=== PATIENT | female | born 1990 | race African-American/Black ===

== ENCOUNTER 2019-05-02 15:00 | Emergency (ER) | payer OTHER ==
[2019-05-02 15:25] VITALS: BP 114/64; PULSE 72; TEMP 98; BMI 31.6
[2019-05-02] MEDS ORDERED: ACETAMINOPHEN 325 MG TABLET (FP) PO ONE (15:32)
--- NOTE | 2019-05-02 15:33 | PDOC ---
History of Present Illness - General Chief Complaint: Injury Stated Complaint: INJURY Time Seen by Provider: 05/02/19 15:24 History Source: Patient Exam Limitations: No Limitations - History of Present Illness Initial Comments: Estephanie Toussaint is a 28 yo F w a hx of MS on tecfidera and chronic back pain who [facility] after the ceiling from her bathroom fell down on her while she was in the bathroom. The ceiling from her bathroom frequently leaks and this is the 2nd time the ceiling has fallen down. She is usually only able to walk with a walker and when the ceiling fell on her today no-one else was home to help her get up and she could not get up on her own so she called 911 for help. She is endorsing a significant amount of left elbow and knee pain as well as right lateral back pain. Patient is not able to ambulate at baseline secondary to her MS. She states she has multiple herniated discs in her back and today the sheet rock that fell down on her is causing her pain to be worse. The patient states she does not believe her back pain is any worse than usual but it hurts as it always does. PCP: Kalyan Batres Allergies: NKA, NKDA Social Hx: Denies current smoking, drinking, or other substance usage PSH: Umbilical hernia surgery Past History - Past Medical History Allergies/Adverse Reactions: Allergies Allergy/AdvReac Type Severity Reaction Status Date / Time No Known Allergies Allergy Verified 05/02/19 15:25 Home Medications: Ambulatory Orders Tobramycin/Dexamethasone [Tobradex Eye Drops] 2 drop OD Q4H #1 bottle 03/31/14 Anemia: No Asthma: No Cancer: No Cardiac Disorders: No CVA: No COPD: No CHF: No Dementia: No Diabetes: No GI Disorders: Yes (hernia) Disorders: No HTN: No Hypercholesterolemia: No Liver Disease: No Seizures: No Thyroid Disease: No - Surgical History Abdominal Surgery: Yes (UMBILICAL HERNIA) Appendectomy: No Cardiac Surgery: No Cholecystectomy: No Lung Surgery: No Neurologic Surgery: No Orthopedic Surgery: No - Suicide/Smoking/Psychosocial Hx Smoking Status: Yes Smoking History: Unknown if ever smoked Have you smoked in the past 12 months: No Number of Cigarettes Smoked Daily: 0 Information on smoking cessation initiated: No Hx Alcohol Use: No Drug/Substance Use Hx: No Substance Use Type: Alcohol Hx Substance Use Treatment: No Review of Systems - Review of Systems Able to Perform ROS?: Yes Comments:: CONSTITUTIONAL: Absent: fever, no chills, no fatigue EYES: Absent: visual changes ENT: Absent: ear pain, no sore throat CARDIOVASCULAR: Absent: chest pain, no palpitations RESPIRATORY: Absent: cough, no SOB GI: Absent: abdominal pain, no nausea, no vomiting, no constipation, no diarrhea GENITOURINARY: Absent: dysuria, no frequency, no hematuria MUSKULOSKELETAL: Present: Back pain, arthralgia Absent: no myalgia SKIN: Absent: rash NEURO: Absent: headache *Physical Exam - Vital Signs Last Vital Signs Temp Pulse Resp BP Pulse Ox 98.0 F 72 16 114/64 98 05/02/19 15:21 05/02/19 15:21 05/02/19 15:21 05/02/19 15:21 05/02/19 15:21 - Physical Exam Comments: GENERAL: Patient is awake, alert and in moderate. Speech is clear and appropriate. HEAD: Atraumatic and nontender. HEENT: Pupils are equal round and reactive to light, extraocular movements are intact. The tympanic membranes are clear, no hemotympanum. No facial deformity. No facial bone tenderness or step-off. No nasal septal hematoma. The oropharynx is clear. NECK: The trachea is midline, there is no stridor. There is no midline cervical spine tenderness, full range of motion of neck. CHEST: Non-tender, no ecchymosis or abrasions. Equal chest wall expansion bilaterally. No flail segments. Lungs are clear to auscultation bilaterally. CARDIOVASCULAR: S1-S2, regular rate and rhythm. No murmurs or rubs. ABDOMEN: Soft, nontender, nondistended. Bowel sounds are normoactive. There is no abdominal or flank ecchymosis. BACK/PELVIS: There is midline lumbosacral spine tenderness. Pelvis is stable and nontender. EXTREMITIES: There is left elbow pain and left knee pain. 2+ distal pulses throughout. NEURO: Alert and oriented x3. Cranial nerves II through XII are intact. 5 out of 5 motor strength x4 extremities. SKIN: No abrasions, hematomas, lacerations. PSYCH: Affect is sad ED Treatment Course - RADIOLOGY Radiology Studies Ordered: Category Date Time Status ELBOW-LEFT [RAD] Stat Radiology 05/02/19 15:29 Ordered KNEE 2 POS-LEFT [RAD] Stat Radiology 05/02/19 15:30 Ordered Medical Decision Making - Medical Decision Making Estephanie Toussaint is a 28 yo F w a hx of MS on tecfidera and chronic back pain who [facility] after the ceiling from her bathroom fell down on her while she was in the bathroom. The ceiling from her bathroom frequently leaks and this is the 2nd time the ceiling has fallen down. She is usually only able to walk with a walker and when the ceiling fell on her today no-one else was home to help her get up and she could not get up on her own so she called 911 for help. She is endorsing a significant amount of left elbow and knee pain as well as right lateral back pain. Patient is not able to ambulate at baseline secondary to her MS. She states she has multiple herniated discs in her back and today the sheet rock that fell down on her is causing her pain to be worse. The patient states she does not believe her back pain is any worse than usual but it hurts as it always does. Vital Signs Temp Pulse Resp BP Pulse Ox 98.0 F 72 16 114/64 98 05/02/19 15:21 05/02/19 15:21 05/02/19 15:21 05/02/19 15:21 05/02/19 15:21 DDx IBNLT: lumbar fx, elbow fx, knee fx Plan: HCG, analgesia, XR, CT, re-assess. HCG: Negative XR: No acute Fx Disposition: Home if CT shows no acute fx Patient will be signed out to night resident Dr. Phan to follow up final CT and disposition. *DC/Admit/Observation/Transfer Diagnosis at time of Disposition: Fall Qualifiers: Encounter type: initial encounter Qualified Code(s): W19.XXXA - Unspecified fall, initial encounter - Discharge Dispostion Disposition: HOME Condition at time of disposition: Stable Decision to Admit order: No - Referrals Referrals: Kalyan Batres MD [Primary Care Provider] - - Patient Instructions Printed Discharge Instructions: How to Prevent Falls Additional Instructions: Please make sure to follow up with your primary care doctor in the next 3 to 5 days to make sure you are feeling well and getting better. Come back to the ER immediately if your pain worsens, you can't control your bowel or bladder, or have any other new or worsening concerns. Thank you for coming to the [facility]. We hope you feel better soon! Print Language: JAPANESE - Post Discharge Activity
[2019-05-02] MEDS ORDERED: ACETAMINOPHEN 325 MG TABLET (FP) ONE (15:34)
--- NOTE | 2019-05-02 16:22 | PDOC ---
Documentation entered by Maria Teresa Wilkins SCRIBE, acting as scribe for Jackelin Driscoll MD. Jackelin Driscoll MD: This documentation has been prepared by the Claudette roberts Nirvannie, SCRIBE, under my direction and personally reviewed by me in its entirety. I confirm that the documentation accurately reflects all work, treatment, procedures, and medical decision making performed by me. Attending Attestation - Resident Resident Name: Juliocesar Davis - ED Attending Attestation I have performed the following: I have examined & evaluated the patient, The case was reviewed & discussed with the resident, I agree w/resident's findings & plan - HPI HPI: 05/02/19 16:02 The patient is a 28 year old female, with a significant past medical history of MS (unable to ambulate) and herniated discs, who presents to the emergency department with, left elbow, left knee, and right sided back pain. As per patient, she was in the bathroom at which time a ceiling tile fell on her mainly hitting her back, prompting her arrival to the ED. She denies recent chest pain or shortness of breath. She denies recent fevers, chills, headache or dizziness. She denies recent nausea, vomiting, diarrhea or constipation. She denies recent dysuria, frequency, urgency or hematuria. Allergies: NKDA Primary Care Physician: Dr. Batres - Physicial Exam PE: 05/02/19 16:02 GENERAL: Awake, alert, and fully oriented, in no acute distress HEAD: No signs of trauma EYES: PERRLA, EOMI, sclera anicteric, conjunctiva clear ENT: Auricles normal inspection, hearing grossly normal, nares patent, oropharynx clear without exudates. Moist mucosa NECK: Normal ROM, supple, no lymphadenopathy, JVD, or masses LUNGS: Breath sounds equal, clear to auscultation bilaterally. No wheezes, and no crackles HEART: Regular rate and rhythm, normal S1 and S2, no murmurs, rubs or gallops ABDOMEN: Soft, nontender, normoactive bowel sounds. No guarding, no rebound. No masses EXTREMITIES: Normal range of motion, no edema. No clubbing or cyanosis. No cords, erythema, or tenderness NEUROLOGICAL: Cranial nerves II through XII grossly intact. Normal speech, normal gait. Motor and sensation intact SKIN: Warm, Dry, normal turgor, no rashes or lesions noted
[2019-05-02] MEDS ORDERED: morphine CARPU-JECT 4 MG/1 ML DISP.SYRIN IVPUSH ONE (16:57)
[2019-05-02] MEDS ORDERED: morphine SULFATE 4 MG/ML VIAL ONE (17:07)
--- NOTE | 2019-05-02 19:10 | PDOC ---
*Physical Exam - Vital Signs Last Vital Signs Temp Pulse Resp BP Pulse Ox 98.0 F 72 16 114/64 98 05/02/19 15:21 05/02/19 15:21 05/02/19 15:21 05/02/19 15:21 05/02/19 15:21 ED Treatment Course - ADDITIONAL ORDERS Additional order review: Laboratory Results 05/02/19 16:22 Urine HCG, Qual Negative - Medications Given in the ED: ED Medications Discontinued Medications Generic Name Dose Route Start Last Admin Trade Name Freq PRN Reason Stop Dose Admin Acetaminophen 975 mg 05/02/19 15:32 05/02/19 15:39 Tylenol - PO 05/02/19 15:33 975 mg ONCE ONE Administration Morphine Sulfate 4 mg 05/02/19 16:57 05/02/19 17:24 Morphine Injection - IVPUSH 05/02/19 16:58 4 mg ONCE ONE Administration Medical Decision Making - Medical Decision Making Pt signed out to me by Dr. Davis, see his note. 28 year old female with PMH chronic back pain, MS [facility] to ED for low back pain, left elbow, left knee pain after her home ceiling fell on top of her. She is ambulatory with a walker at baseline. Initial Vital Signs Temp Pulse Resp BP Pulse Ox 98.0 F 72 16 114/64 98 05/02/19 15:21 05/02/19 15:21 05/02/19 15:21 05/02/19 15:21 05/02/19 15:21 Afebrile. No tachycardia. No tachypnea. No hypotension. No hypoxia on room air. ED Medications Medications given Generic Name Dose Route Start Last Admin Trade Name Freq PRN Reason Stop Dose Admin Acetaminophen 975 mg 05/02/19 15:32 05/02/19 15:39 Tylenol - PO 05/02/19 15:33 975 mg ONCE ONE Administration Morphine Sulfate 4 mg 05/02/19 16:57 05/02/19 17:24 Morphine Injection - IVPUSH 05/02/19 16:58 4 mg ONCE ONE Administration Knee XR and elbow XR showed no acute fracture/dislocation by our read. -Pending official report Pending CT lumbar spine report. 05/02/19 19:18 CT report: REPORT: The bone alignment appears intact. No acute fracture or subluxation is seen. Vertebral heights and disc spaces appear maintained. L5-S1 disc bulging seen. One or more of the following dose reduction techniques were used: automated exposure control, adjustment of the mA and/or kV according to patient size, use of iterative reconstructive technique. Pt informed of results and given copy of report. Pt discharged. *DC/Admit/Observation/Transfer Diagnosis at time of Disposition: Back pain, Herniated nucleus pulposus, L5-S1 Fall Qualifiers: Encounter type: initial encounter Qualified Code(s): W19.XXXA - Unspecified fall, initial encounter - Discharge Dispostion Disposition: HOME Condition at time of disposition: Stable Decision to Admit order: No - Referrals Referrals: Kalyan Batres MD [Primary Care Provider] - - Patient Instructions Printed Discharge Instructions: How to Prevent Falls, DI for Herniated Disc Additional Instructions: You have a disc herniation. Please make sure to follow up with your primary care doctor in the next 3 to 5 days to make sure you are feeling well and getting better. Take ibuprofen over the counter for pain. Take as advised on label. Rest for the next 3 days, do not do any heavy lifting or strenuous exercise. Apply a heating pad to the area, 20 minutes on and 20 minutes off. Come back to the ER immediately if your pain worsens, you can't control your bowel or bladder, or have any other new or worsening concerns. Thank you for coming to the [facility] ER. We hope you feel better soon! Print Language: ALBANIAN - Post Discharge Activity Forms/Work/School Notes: Back to Work
== END 2019-05-02 19:33 | disposition home or self-care (01) ==
LOC: JER 15:00
PROC: 3E033NZ Introduction of Analgesics, Hypnotics, Sedatives into Peripheral Vein, Percutaneous Approach (ICD-10-PCS; principal; 2019-05-02)
DX: M25.522 Pain in left elbow (principal); M25.562 Pain in left knee; M51.27 Other intervertebral disc displacement, lumbosacral region; W20.1XXA Struck by object due to collapse of building, initial encounter; Y93.89 Activity, other specified; Y92.031 Bathroom in apartment as the place of occurrence of the external cause; Y99.8 Other external cause status; G35 Multiple sclerosis; R26.89 Other abnormalities of gait and mobility; Z99.89 Dependence on other enabling machines and devices
CPT/HCPCS: 72131-TC; 73070-TC-LT-FY; 73560-TC-LT-FY; 84703; 96374; 99283-25

== ENCOUNTER 2019-07-23 06:23 | Emergency (ER) | payer OTHER ==
[2019-07-23 07:17] VITALS: BMI 28.1
[2019-07-23] MEDS ORDERED: ACETAMINOPHEN 1000 MG/100 ML VIAL (NON FORMULARY) IVPB ONE (07:39)
[2019-07-23] MEDS ORDERED: ACETAMINOPHEN INJECTION 100 ML IVPB ONE (07:53)
[2019-07-23] MEDS ORDERED: FAMOTIDINE 20 MG/50 ML IVPB 20 MG/50 ML MG IVPB ONE ×2 (08:03→08:04)
[2019-07-23 08:05] LABS: BASO % 0.8 % (0-2.0); EOS % 1.2 % (0-4.5); HEMATOCRIT 37.9 % (32.4-45.2); HEMOGLOBIN 12.7 GM/dL (10.7-15.3); LYMPH % 24.8 % (8-40); MCH 28.7 pg (25.7-33.7); MCHC 33.5 g/dl (32.0-36.0); MEAN CELL VOLUME 85.7 fl (80-96); MEAN PLT VOLUME 7.5 fl (7.5-11.1); MONO % 9.5 % (3.8-10.2); NEUT % 63.7 % (42.8-82.8); PLATELET COUNT 380 K/MM3 (134-434); RBC 4.42 M/mm3 (3.60-5.2); RDW 16.3 % (11.6-15.6); WHITE BLOOD COUNT 4.6 K/mm3 (4.0-10.0)
--- NOTE | 2019-07-23 08:10 | PDOC ---
History of Present Illness - General Chief Complaint: Pain Stated Complaint: ABD PAIN Time Seen by Provider: 07/23/19 07:30 History Source: Patient Exam Limitations: Clinical Condition - History of Present Illness Initial Comments: 07/23/19 08:05 Patient with past medical history of multiple sclerosis on meds presented with complaint of sudden onset of epigastric and lower chest pain upon wake 3 hours ago when one episode of vomiting. Patient reported severe epigastric pain radiating to suprapubic region and left lower quadrant abdomen. Denies diarrhea , constipation, fever, chills, shortness of breath, palpitations, dizziness, sweats or weakness. Report increased pain when she presses on the lower chest or when she moves which get better when she is at rest. Patient did not take anything for symptoms Is this a multiple visit Asthma Patient?: No Timing/Duration: 4-6 hours Past History - Past Medical History Allergies/Adverse Reactions: Allergies Allergy/AdvReac Type Severity Reaction Status Date / Time No Known Allergies Allergy Verified 05/02/19 15:25 Home Medications: Ambulatory Orders Tobramycin/Dexamethasone [Tobradex Eye Drops] 2 drop OD Q4H #1 bottle 03/31/14 Famotidine [Pepcid -] 20 mg PO BID #10 tablet 07/23/19 Mag Hydrox/Aluminum Hyd/Simeth [Maalox Advanced Suspension] 30 ml PO Q8H PRN # 200 ml 07/23/19 Anemia: No Asthma: No Cancer: No Cardiac Disorders: No CVA: No COPD: No CHF: No Dementia: No Diabetes: No GI Disorders: Yes (hernia) Disorders: No HTN: No Hypercholesterolemia: No Liver Disease: No Seizures: No Thyroid Disease: No - Surgical History Abdominal Surgery: Yes (UMBILICAL HERNIA) Appendectomy: No Cardiac Surgery: No Cholecystectomy: No Lung Surgery: No Neurologic Surgery: No Orthopedic Surgery: No - Psycho Social/Smoking Cessation Hx Smoking Status: Yes Smoking History: Current every day smoker Have you smoked in the past 12 months: No Number of Cigarettes Smoked Daily: 7 Information on smoking cessation initiated: Yes Hx Alcohol Use: No Drug/Substance Use Hx: No Substance Use Type: Alcohol Hx Substance Use Treatment: No Review of Systems - Review of Systems Able to Perform ROS?: Yes Is the patient limited [place] Leonean proficient: No Constitutional: No: Chills, Fever, Malaise, Weakness HEENTM: No: Symptoms Reported, See HPI, Eye Pain, Blurred Vision, Tearing, Recent change in vision, Double Vision, Cataracts, Ear Pain, Ocular Prothesis, Ear Discharge, Nose Pain, Nose Congestion, Tinnitus, Nose Bleeding, Hearing Loss , Throat Pain, Throat Swelling, Mouth Pain, Dental Problems, Difficulty Swallowing, Mouth Swelling, Other Respiratory: No: Symptoms reported, See HPI, Cough, Orthopnea, Shortness of Breath, SOB with Exertion, SOB at Rest, Stridor, Wheezing, Productive cough, Hemoptysis, Other Cardiac (ROS): Yes: Symptoms Reported, See HPI, Chest Pain (lower mid-sternum). No: Edema, Irregular Heart Rate, Lightheadedness, Palpitations, Syncope, Chest Tightness, Other ABD/GI: Yes: Symptoms Reported, See HPI, Vomiting (resolved). No: Abd. Pain w/ defecation, Blood Streaked Bowels, Constipated, Diarrhea, Difficulty Swallowing , Nausea, Rectal Bleeding, Indigestion, Abdominal cramping Musculoskeletal: No: Symptoms Reported Integumentary: No: Symptoms Reported Neurological: No: Symptoms reported, Headache, Numbness, Paresthesia, Seizure, Weakness, Unsteady Gait, Ataxia, Dizziness All Other Systems: Reviewed and Negative *Physical Exam - Vital Signs Last Vital Signs Temp Pulse Resp BP Pulse Ox 97.5 F L 63 15 109/68 99 07/23/19 06:40 07/23/19 06:40 07/23/19 06:40 07/23/19 06:40 07/23/19 06:40 - Physical Exam Comments: 07/23/19 08:12 GENERAL: Well developed, well nourished. Awake and alert. No acute distress. HEENT: Normocephalic, atraumatic. PERRLA, EOMI. No conjunctival pallor. Sclera are non-icteric. Moist mucous membranes. Oropharynx is clear. NECK: Supple. Full ROM. CARDIOVASCULAR: Regular rate and rhythm. No murmurs, rubs, or gallops. Distal pulses are 2+ and symmetric. Mild lower mid sternum tenderness over xiphoid process PULMONARY: No evidence of respiratory distress. Lungs clear to auscultation bilaterally. No wheezing, rales or rhonchi. ABDOMINAL: Soft. Moderate epigastric discomfort. Non-distended. No rebound or guarding. No organomegaly. Normoactive bowel sounds. negative tristan's sign MUSCULOSKELETAL Normal range of motion at all joints. SKIN: Warm and dry. Normal capillary refill. No rashes. No cyanosis. NEUROLOGICAL: Alert, awake, appropriate. Gait is normal without ataxia. PSYCHIATRIC: Cooperative. Good eye contact. Appropriate mood General Appearance: Yes: Nourished, Appropriately Dressed. No: Apparent Distress ED Treatment Course - LABORATORY CBC & Chemistry Diagram: 07/23/19 07:40 07/23/19 07:40 Medical Decision Making - Medical Decision Making 07/23/19 08:07 Patient with past medical history of multiple sclerosis on meds presented with complaint of sudden onset of epigastric and lower chest pain upon wake 3 hours ago when one episode of vomiting. Patient reported severe epigastric pain radiating to suprapubic region and left lower quadrant abdomen. Denies diarrhea , constipation, fever, chills, shortness of breath, palpitations, dizziness, sweats or weakness. Report increased pain when she presses on the lower chest or when she moves which get better when she is at rest. Patient did not take anything for symptoms Exam significant for moderate tenderness to epigastric region without guarding or rebound with mild tenderness to lower mid sternum over the xiphoid. Normal bowel sounds. Negative tristan's sign. Normal cardio exam and lungs clear to auscultation bilateral. Patient symptoms likely costochondritis with with cholecystitis versus musculoskeletal pain versus less likely cardiogenic pain. CBC, CMP and lipase lab ordered. Cardiac profile lab ordered to rule out acute cardiac pathology. EKG ordered. Tylenol 1 g IV ordered for pain and Pepcid 20 mg IV ordered for epigastric pain. Treat based on lab and imaging results 07/23/19 08:40 EKG shows normal sinus rhythm. Cardiac profile negative. CBC and chemistry lab within normal limits. Patient reported improved pain with Tylenol and Pepcid. Abdominal ultrasound ordered to evaluate abdominal pain to rule out cholecystitis or gallstone 07/23/19 12:09 CBC, CMP and cardiac profile unremarkable. ultrasound read by radiologist shows multiple non-obstructing gallstones with thickening of gallbladder w/o pericholecystic fluid which is suggestive but not diagnostic of possible cholecystitis. Given normal labs and negative tristan's sign on exam, and pt report complete improvement of pain, Patient stable for discharge on pepcid and maalox with general surgery f/u and strict f/u instructions Discharge - Discharge Information Problems reviewed: Yes Clinical Impression/Diagnosis: Abdominal pain Qualifiers: Abdominal location: epigastric Qualified Code(s): R10.13 - Epigastric pain Gallstone Qualifiers: Cholecystitis presence: without cholecystitis Biliary obstruction: without biliary obstruction Qualified Code(s): K80.20 - Calculus of gallbladder without cholecystitis without obstruction Condition: Stable Disposition: HOME - Admission No - Additional Discharge Information Prescriptions: Famotidine [Pepcid -] 20 mg PO BID #10 tablet Mag Hydrox/Aluminum Hyd/Simeth [Maalox Advanced Suspension] 30 ml PO Q8H PRN # 200 ml PRN Reason: abdominal discomfort - Follow up/Referral Referrals: Walter Whitten MD [Staff Physician] - - Patient Discharge Instructions Patient Printed Discharge Instructions: DI for Acute Abdomen Additional Instructions: Your labs was normal. Your abdominal ultrasound shows multiple gallstones with mild thickening of the gallbladder which needs to be followed-up by genreal surgery. Take prescribed medication as prescribed for abdominal discomfort. Increase fluid intake. Follow-up referred general surgery doctor immediately as discussed. Come right back to ER or nearest ED if worsening abdominal pains, nausea, vomiting, fever - Post Discharge Activity
[2019-07-23 08:17] LABS: INR 1.02 (0.83-1.09)
[2019-07-23 08:19] LABS: ACTIVATED PTT 32.1 SECONDS (25.2-36.5)
[2019-07-23 08:31] LABS: ALBUMIN 3.8 g/dl (3.4-5.0); BILIRUBIN,TOTAL 0.6 mg/dL (0.2-1); BLOOD UREA NITROGEN 17.9 mg/dL (7-18); CALCIUM 9.3 mg/dL (8.5-10.1); CREATININE 0.8 mg/dL (0.55-1.3); POTASSIUM 4.1 mmol/L (3.5-5.1); TOT PROT 7.3 g/dl (6.4-8.2)
[2019-07-23 08:33] LABS: LIPASE 69 U/L (73-393)
[2019-07-23 12:12] VITALS: BP 110/62; PULSE 67; TEMP 98.6
--- NOTE | 2019-07-26 11:49 | EKG ---
Test Reason : Blood Pressure : / mmHG Vent. Rate : 067 BPM Atrial Rate : 067 BPM P-R Int : 128 ms QRS Dur : 086 ms QT Int : 408 ms P-R-T Axes : 065 069 053 degrees QTc Int : 431 ms NORMAL SINUS RHYTHM WITH SINUS ARRHYTHMIA NORMAL ECG WHEN COMPARED WITH ECG OF 16-JAN-2013 19:55, NO SIGNIFICANT CHANGE WAS FOUND Confirmed by HUONG THOMPSON MD ([id number]) on 07/26/2019 11:49:23 AM Referred By: Confirmed By:HUONG THOMPSON MD
== END 2019-07-23 12:00 | disposition home or self-care (01) ==
LOC: JER 06:23
PROC: 3E033GC Introduction of Other Therapeutic Substance into Peripheral Vein, Percutaneous Approach (ICD-10-PCS; principal; 2019-07-23)
PROC: 3E033NZ Introduction of Analgesics, Hypnotics, Sedatives into Peripheral Vein, Percutaneous Approach (ICD-10-PCS; 2019-07-23)
DX: K80.20 Calculus of gallbladder without cholecystitis without obstruction (principal); F17.210 Nicotine dependence, cigarettes, uncomplicated
CPT/HCPCS: 36415; 76705-TC; 80053; 82550; 82553; 83690; 84484; 85025; 85610; 85730; 93005; 93010; 99283-25; J0131

== ENCOUNTER 2019-10-08 08:51 | Day surgery (SDC) | payer OTHER ==
[2019-10-04 15:52] VITALS: BMI 28.1
[2019-10-08] MEDS ORDERED: ONDANSETRON 4 MG/2 ML VIAL ONE (09:42)
[2019-10-08] MEDS ORDERED: DEXAMETHASONE SOD PHOSPHATE 4 MG/1 ML VIAL ONE (09:42)
[2019-10-08] MEDS ORDERED: ceFAZolin SODIUM 1 GM VIAL ONE (09:42)
[2019-10-08] MEDS ORDERED: KETOROLAC TROMETHAMINE 30 MG/1 ML VIAL ONE (09:42)
[2019-10-08] MEDS ORDERED: PROPOFOL 20 ML ONE (09:42)
[2019-10-08] MEDS ORDERED: MIDAZOLAM HCL 2 MG/2 ML SINGLE DOSE VIAL ONE (09:42)
[2019-10-08] MEDS ORDERED: BUPIVACAINE HCL/PF 2.5 MG/ML - 30 ML VIAL IJ ONE (10:01)
[2019-10-08] MEDS ORDERED: ONDANSETRON 4 MG/2 ML VIAL IVPUSH PRN (11:10)
[2019-10-08] MEDS ORDERED: oxyCODONE HCL 5 MG TABLET PO PRN ×2 (11:10)
[2019-10-08] MEDS ORDERED: LACTATED RINGERS SOLUTION 1,000 ML IV SCH (11:15)
[2019-10-08] MEDS ORDERED: BUPIVACAINE HCL/PF 0.25% (2.5MG/ML) 10 ML VIAL IJ ONE (11:26)
[2019-10-08] MEDS ORDERED: ALBUTEROL SO4 2.5/IPRATROPIUM 0.5 INH SOL 3 ML VIAL.NEB. NEB ONE (12:05)
--- NOTE | 2019-10-08 12:48 | OP ---
DATE OF OPERATION: 10/08/2019 Done at [facility] SURGEON: Monster Hester MD MECHANICAL ENGINEERING OFFICER: FREDDY Roberts PREOPERATIVE DIAGNOSES: 1. Right knee medial and lateral meniscal tear. 2. Right knee cartilage injury. 3. Right knee synovitis. POSTOPERATIVE DIAGNOSIS: 1. Right knee medial and lateral meniscal tear. 2. Right knee cartilage injury. 3. Right knee synovitis. PROCEDURE: 1. Right knee arthroscopy with partial meniscectomy medial and lateral meniscus, CPT code 16565. 2. Right knee arthroscopy with chondroplasty and abrasion-plasty, CPT code 34524. 3. Right knee arthroscopy with synovectomy, CPT code 84220. FINDINGS: 1. Medial meniscus posterior horn tear undersurface. 2. Lateral meniscus posterior horn tear and anterior horn tear, minor. 3. Synovitis patellofemoral medial and lateral notch area with large medial plica. 4. Minimal cartilage changes medial and lateral joint. 5. ACL and PCL intact. 6. Anterior grade 4 changes at site of medial plica adhesion patellofemoral trochlea with superior medial facet grade 3-4 changes 2 cm x 1 cm. PROCEDURE: Informed consent was obtained. The patient came to the operating room, where the lower extremity was prepped and draped in a sterile fashion. A tourniquet was placed on the upper thigh, but not inflated. Using standard arthroscopic technique, a lateral incision and portal was made to allow for introduction of the camera into the suprapatellar bursa. This was then taken to the medial joint line, where under direct visualization, a medial incision and portal was made. Excessive synovium noted in the medial, lateral and patellofemoral and notch area was removed by an upbiter, shaver and Bovie cautery. This was found to bring in inflammatory tissue into the joint surface, a source of pain and dysfunction. Probing of the medial and lateral meniscus found tears, as described in the findings. These were removed with the upbiter and shaver and taken back to a stable rim. Grade 2 to 3 degenerative changes were treated with a chondroplasty, removing all flaking surfaces with low-setting Bovie along the periphery to prevent further flaking. Grade 4 changes, as noted, were treated with an abrasoplasty, creating a bleeding surface at the bone/cartilage interface. Aggressive debridement with shaver/lori created bleeding surface. Micro fracture also done when indicated in findings. All areas of the knee were once again reexamined. The knee was then drained and a single suture was placed in all portals. A sterile dressing was placed and the patient was transferred to the recovery room without complication. The PA listed above was present and assisted at surgery. Their presence was absolutely medically necessary for the completion of the procedure. They helped hold the arthroscopy, pass instruments (and implants when indicated) and the procedure could not have been completed without their assistance. MONSTER HESTER M.D. [id number]
[2019-10-08 14:35] VITALS: BP 116/69; PULSE 80; TEMP 97.3
--- NOTE | 2019-10-11 16:11 | PATH ---
Surgical Pathology Report Patient Name: MAXX KOHLER Med. Rec. #: [id number] /Age/Gender: 1990 (Age: 29) / F Account: [id number] Location: [facility] Taken: 10/08/2019 Received: 10/08/2019 Reported: 10/11/2019 Physicians: Monster Subramanian M.D. Specimen(s) Received SHAVINGS RIGHT KNEE Clinical History Right knee derangement Final Diagnosis KNEE, RIGHT, ARTHROSCOPIC SHAVINGS: FIBROSYNOVIAL TISSUE AND FIBROCARTILAGINOUS TISSUE. Electronically Signed Nilda Tiwari M.D. Gross Description Received in formalin, labeled "right knee shavings," is a 3.5 x 3.0 x 0.3 cm. aggregate of [place]ester[place]-yellow soft tissue fragments. A sales representative consultant portion is submitted in one cassette. /10/08/2019 saudi/10/08/2019
== END 2019-10-08 14:35 | disposition home or self-care (01) ==
LOC: FASU 08:51
PROVIDERS: ATTEND Orthopaedic Surgery
PROC: 0SBC4ZZ Excision of Right Knee Joint, Percutaneous Endoscopic Approach (ICD-10-PCS; 2019-10-08)
PROC: 0SBC4ZZ Excision of Right Knee Joint, Percutaneous Endoscopic Approach (ICD-10-PCS; 2019-10-08)
PROC: 0SBC4ZZ Excision of Right Knee Joint, Percutaneous Endoscopic Approach (ICD-10-PCS; principal; 2019-10-08 11:22)
DX: S83.241A Other tear of medial meniscus, current injury, right knee, initial encounter (principal); S83.281A Other tear of lateral meniscus, current injury, right knee, initial encounter; S83.8X1A Sprain of other specified parts of right knee, initial encounter; M65.861 Other synovitis and tenosynovitis, right lower leg; X58.XXXA Exposure to other specified factors, initial encounter; Y93.9 Activity, unspecified; Y92.9 Unspecified place or not applicable
CPT/HCPCS: 84703; 88304-TC; 94760

== ENCOUNTER 2020-07-26 13:17 | Emergency (ER) | payer OTHER ==
[2020-07-26 13:28] VITALS: BP 114/62; PULSE 94; TEMP 97.4; BMI 26.6
[2020-07-26] MEDS ORDERED: ACETAMINOPHEN 1000 MG/100 ML VIAL (NON FORMULARY) IVPB ONE (14:10)
[2020-07-26] MEDS ORDERED: ACETAMINOPHEN INJECTION 100 ML IVPB ONE (14:20)
[2020-07-26 15:07] LABS: BASO % 0.8 % (0-2.0); EOS % 0.9 % (0-4.5); HEMATOCRIT 37.4 % (32.4-45.2); HEMOGLOBIN 12.4 GM/dL (10.7-15.3); LYMPH % 13.5 % (8-40); MCH 29.9 pg (25.7-33.7); MEAN CELL VOLUME 90.4 fl (80-96); MEAN PLT VOLUME 7.3 fl (7.5-11.1); MONO % 9.4 % (3.8-10.2); NEUT % 75.4 % (42.8-82.8); PLATELET COUNT 422 K/MM3 (134-434); RBC 4.14 M/mm3 (3.60-5.2); RDW 14.7 % (11.6-15.6)
[2020-07-26 15:15] LABS: INR 1.09 (0.83-1.09); PROTHROMBIN TIME (PATIENT) 13.2 SEC (9.7-13.0)
[2020-07-26 15:16] LABS: POTASSIUM 4.4 mmol/L (3.5-5.1)
[2020-07-26 15:17] LABS: ACTIVATED PTT 30.9 SECONDS (25.2-36.5); ALBUMIN 3.8 g/dl (3.4-5.0)
[2020-07-26 15:18] LABS: CALCIUM 9.3 mg/dL (8.5-10.1)
[2020-07-26 15:22] LABS: CREATININE 0.8 mg/dL (0.55-1.3)
[2020-07-26 15:23] LABS: TOT PROT 7.8 g/dl (6.4-8.2)
[2020-07-26 15:23] LABS: EPI CELLS 8 /uL (0-25.1); HYALINE CASTS 4 /uL (0-3.1); URINE APPEARANCE CLEAR; URINE BACTERIA >9,000 /uL (0-1359); URINE BILIRUBIN NEGATIVE (NEGATIVE); URINE COLOR YELLOW; URINE GLUCOSE (UA) NEGATIVE (NEGATIVE); URINE KETONE TRACE (NEGATIVE); URINE LEUK ESTERASE 1+ (NEGATIVE); URINE NITRITE POSITIVE (NEGATIVE); URINE PROTEIN TRACE (NEGATIVE); URINE RBC 1055 /uL (0-23.9); URINE WBC 325 /uL (0-25.8)
[2020-07-26 15:29] LABS: HCG,QUALITATIVE URINE Negative
== END 2020-07-26 18:34 | disposition home or self-care (01) ==
LOC: JERFT 13:17
PROC: 3E0333Z Introduction of Anti-inflammatory into Peripheral Vein, Percutaneous Approach (ICD-10-PCS; principal; 2020-07-26)
DX: N94.6 Dysmenorrhea, unspecified (principal); N30.00 Acute cystitis without hematuria
CPT/HCPCS: 36415; 76830-TC; 80053; 81003; 84703; 85025; 85610; 85730; 86850; 86900; 86901; 87086; 87186; 99284-25; J0131